=== PATIENT | female | born 1960 | race Two or more races ===

== ENCOUNTER 2024-12-01 17:30 | Emergency (ER) | payer MEDICAID, OTHER ==
[~2024-12-01] VITALS: Ht 149.9 cm; Wt 82.0 kg
--- NOTE | 2024-12-01 19:03 | ED.PDOC ---
Back pain HPI HPI Comments Pt presents to the ER with a C/C of right knee pain. Pt states she "twisted her knee," approx. 2 months ago and since has been experiencing pain. Reports pain 9/10 at this time, Denies numbness or weakness. Chief Complaint: Lower Extremity Time Seen by MD: 18:31 Reviewed Notes: Nurses Notes, Medications, Allergies Allergies: Coded Allergies: Sulfa Antibiotics (Verified Allergy, Unknown, 12/01/24) Home Meds Active Scripts Methocarbamol (Methocarbamol) 500 Mg Tab, 500 MG PO HS PRN for 7 Days, #7 TAB Prov:BEBETO REIS DIRECTOR OF FOOD AND NUTRITION SERVICES 12/01/24 Methylprednisolone (Medrol Dosepak) 4 Mg Demarco, 4 MG PO UD for 6 Days, #21 TAB 6 Refills [facility] Prov:[facility] 12/01/24 Information Source: Patient Mode of Arrival: Ambulatory Past Medical History PAST MEDICAL HISTORY: Denies Surgical History: Denies all surgeries TIME STUDY OBSERVER History: No Pertinent TIME STUDY OBSERVER History Family History Family History: Reviewed,noncontributory to illness Social History Smoker: Non-Smoker Alcohol: Denies ETOH Use Drugs: Denies Drug Use Constitutional: denies: chills, diaphoresis, fatigue, fever, malaise, sweats, weakness, others EENTM: denies: blurred vision, double vision, ear bleeding, ear discharge, ear drainage, ear pain, ear ringing, eye pain, eye redness, hearing loss, mouth pain, mouth swelling, nasal discharge, nose bleeding, nose congestion, nose pain, photophobia, tearing, throat pain, throat swelling, voice changes, others Respiratory: denies: cough, hemoptysis, orthopnea, SOB at rest, shortness of breath, SOB with excertion, stridor, wheezing, others Cardiovascular: denies: chest pain, dizzy spells, diaphoresis, Dyspnea on exertion, edema, irregular heart beat, left arm pain, lightheadedness, palpitations, PND, syncope, others Gastrointestinal: denies: abdomen distended, abdominal pain, blood streaked bowels, constipated, diarrhea, dysphagia, difficulty swallowing, hematemesis, melena, nausea, poor appetite, poor fluid intake, rectal bleeding, rectal pain, vomiting, others Genitourinary: denies: abnormal vagina bleeding, burning, dyspareunia, dysuria, flank pain, frequency, hematuria, incontinence, pain, , vagina discharge, urgency, others Neurological: denies: dizziness, fainting, headache, left sided numbness, left sided weakness, numbness, paresthesia, pre-existing deficit, right sided numbness, right sided weakness, seizure, speech problems, tingling, tremors, weakness, others Musculoskeletal: reports: others (right knee pain and swelling ); denies: back pain, gout, joint pain, joint swelling, muscle pain, muscle stiffness, neck pain Integumetry: denies: bruises, change in color, change in hair/nails, dryness, laceration, lesions, lumps, rash, wounds, others Allergic/Immunocompromised: denies: Difficulty Healing, Frequent Infections, Hives, Itching, others Hematologic/Lymphatic: denies: anemia, blood clots, easy bleeding, easy bruising, swollen glands, others Endocrine: denies: excessive hunger, excessive sweating, excessive thirst, excessive urination, flushing, intolerance to cold, intolerance to heat, unexplained weight gain, unexplained weight loss, others Psychiatric: denies: anxiety, bipolar disorder, depression, hopeless, panic disorder, schizophrenia, sleepless, suicidal, others Physical Exam General Appearance: No Apparent Distress, Normal HEENT: Pharynx Normal Neck: Full Range of Motion, Non-Tender Respiratory: Lungs Clear, No Respiratory Distress, Normal Breath Sounds Cardiovascular: No Murmur, Normal Peripheral Pulses, Regular Rate/Rhythm Breast Exam: Deferred Gastrointestinal: Non Tender, Soft Genitalia: Deferred Pelvic: Deferred Rectal: Deferred Extremities: Normal capillary refill, Normal inspection, Normal range of motion, Non-tender, No pedal edema Musculoskeletal : Location: Right Extremity Location: Knee Apperance: Normal Neurologic: Alert, gear finisher II-XII nml as Tested, No Motor Deficits, Normal Affect, Normal Mood, No Sensory Deficits Cerebellar Function: Normal Reflexes: Normal Skin: Dry, Normal Color, Warm Lymphatic: No Adenopathy Was a procedure done? Was a procedure done?: No Back Pain Differential Dx Differential Diagnosis: Fracture, Musculoskeletal Pain X-Ray, Labs, Meds, VS Vital Signs Date Time Temp Pulse Resp B/P (MAP) Pulse Ox O2 Delivery O2 Flow Rate FiO2 12/01/24 19:38 97.9 75 19 185/87 (119) 99 97.9 12/01/24 19:38 75 19 99 Room Air 12/01/24 17:45 97.9 91 18 169/69 (102) 97 Current Medications Medications (Trade) Dose Ordered Sig/Swetha Route Start Time Stop Time Status Last Admin Ketorolac Tromethamine (Toradol Injection) 60 mg ONCE ONCE IM 12/01/24 19:45 12/01/24 19:46 DC 12/01/24 19:47 X-Ray, Labs, Meds, VS Comment Xray R Knee FINDINGS/IMPRESSION: : There is no evidence of acute fracture or dislocation. 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 Note is made of a fabella. Overlying soft tissues are intact. Patient given Toradol 60 mg IM for the pain she notes improvement with pain and function requesting discharge at this time. Script Medrol Dosepak. He is to follow up with employee health recommend MRI for continued symptoms. Patient placed in right knee brace and crutches. Advised on [facility] ER return precautions given patient indicates understanding agrees with discharge plan of care. Time of 1ST Reevaluation: 20:12 Reevaluation 1ST: Improved Patient Education/Counseling: Diagnosis, Treatment, Prognosis, Need For Follow Up Family Education/Counseling: No Family Present Departure 1 Departure Time of Disposition: 20:12 Impression: Primary Impression: Right knee sprain Qualified Codes: S83.8X1A - Sprain of other specified parts of right knee, initial encounter Disposition: HOME / SELF CARE / HOMELESS Condition: Stable e-Prescriptions Methocarbamol (Methocarbamol) 500 Mg Tab 500 MG PO HS PRN for 7 Days, #7 TAB Prov: BEBETO REIS 12/01/24 Methylprednisolone (Medrol Dosepak) 4 Mg Demarco 4 MG PO UD for 6 Days, #21 TAB 6 Refills UAD Prov: BEBETO REIS 12/01/24 Discharged With: Self Critical Care Note Critical Care Time?: No Stability Stability form required: BEBETO Cardona Dec 01, 2024 19:03
--- NOTE | 2024-12-01 19:11 | DVH ---
CLINICAL INDICATION: Right knee pain TECHNIQUE: XY R KNEE 3V XRAY Comparison: None FINDINGS/IMPRESSION: : There is no evidence of acute fracture or dislocation. 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 Note is made of a fabella. Overlying soft tissues are intact.
[2024-12-01 19:38] VITALS: BP 185/87; PULSE 75; RESP 19; TEMP 97.9; O2SAT 99
[2024-12-01] MEDS: KETOROLAC TROMETH 60MG/2ML VIAL IM ONE (19:47)
[2024-12-01] MEDS ORDERED: METH-1181 PO (20:14)
[2024-12-01] MEDS ORDERED: METH4PAK PO (20:14)
== END 2024-12-01 21:02 | disposition home or self-care (01) ==
LOC: EEVIPCON 17:30 → ER 17:30
DX: S83.91XA Sprain of unspecified site of right knee, initial encounter (principal); Z88.2 Allergy status to sulfonamides; X50.1XXA Overexertion from prolonged static or awkward postures, initial encounter; Y93.89 Activity, other specified; Y92.89 Other specified places as the place of occurrence of the external cause; Y99.8 Other external cause status
CPT/HCPCS: 29505; 73562; 96372; 99283; J1885